=== PATIENT | male | born 1965 | race Two or more races ===

== ENCOUNTER 2018-04-15 10:20 | Outpatient (CLI) | payer OTHER | END 2018-04-15 10:21 | disposition home or self-care (01) | LOC: SC 10:20 | PROVIDERS: ATTEND Internal Medicine Pulmonary Disease | DX: G47.33 Obstructive sleep apnea (adult) (pediatric) (principal); F17.210 Nicotine dependence, cigarettes, uncomplicated; E66.9 Obesity, unspecified; Z68.31 Body mass index [BMI] 31.0-31.9, adult | CPT/HCPCS: 99203; 99212 ==

== ENCOUNTER 2020-04-05 05:56 | Day surgery (SDC) | payer OTHER ==
[2020-04-05] MEDS ORDERED: ceFAZolin 2 GM/50 ML 0 GM/0 ML BAG IV ONE (06:20)
[2020-04-05 06:28] VITALS: BP 140/82
[2020-04-05] MEDS ORDERED: LACTATED RINGERS 1,000 ML IV ONE (06:50)
[2020-04-05] MEDS ORDERED: BUPIVACAINE 0.25% PF 30 ML VIAL ONE (07:01)
[2020-04-05] MEDS ORDERED: PROPOFOL 200 MG/20 ML VIAL IVP ONE (07:09)
--- NOTE | 2020-04-05 07:09 | ANESTHESIA ---
Pre-Anesthesia VS, & Labs - Diagnosis R CTS - Procedure R CTR Vital Signs: Temp Pulse Resp BP Pulse Ox 36.4 C L 65 18 140/82 H 98 04/05/20 06:25 04/05/20 06:25 04/05/20 06:25 04/05/20 06:25 04/05/20 06:25 Height: 5 ft 6 in Weight (kg): 87.09 kg Body Mass Index: 30.9 BMI Classification: Obese - NPO >8 hours - Lab Results Lab results reviewed: Yes Home Medications and Allergies Home Medications: Ambulatory Orders Ergocalciferol [Vitamin D2] 50,000 unit PO Q7D 04/01/20 Ergocalciferol [Vitamin D2] 50,000 unit PO Q7D 04/01/20 Allergies/Adverse Reactions: Allergies Allergy/AdvReac Type Severity Reaction Status Date / Time No Known Drug Allergies Allergy Verified 04/01/20 08:13 Anes History & Medical History - Anesthetic History Anesthesia Complications: reports: No previous complications Family history of Anesthesia Complications: Denies Family history of Malignant Hyperthermia: Denies - Medical History Cardiovascular: reports: None Pulmonary: reports: Sleep apnea Gastrointestinal: reports: GERD Urinary: reports: None Neuro: reports: Other ([place]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, 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) Musculoskeletal: reports: Other Endocrine/Autoimmune: reports: Other Skin: reports: None - Surgical History General: Colonoscopy Exam General: Alert, Oriented x3, Cooperative Dental: WNL Mouth Openin Fingerbreadth Neck Mobility: Normal Mallampati classification: II Thyromental Distance: greater than 6 cm Respiratory: Lungs clear, Normal breath sounds, No respiratory distress Cardiovascular: Regular rate Mental/Cognitive Status: Alert/Oriented X3, Normal for patient Cognitive Status: Within normal limits Plan Anesthesia Type: General, MAC Consent for Procedure(s) Verified and Reviewed: Yes Code Status: Attempt Resuscitation ASA classification: 2-Mild systemic disease Is this case an emergency?: No
[2020-04-05] MEDS ORDERED: METOCLOPRAMIDE 10 MG/2 ML VIAL IVP PRN (07:10)
[2020-04-05] MEDS ORDERED: ePHEDrine 50 MG/ML VIAL IVP PRN (07:10)
[2020-04-05] MEDS ORDERED: ATROPINE ABBOJECT 1 MG/10 ML SYRINGE IVP PRN (07:10)
[2020-04-05] MEDS ORDERED: MORPHINE 2 MG/ML CARPUJECT IVP PRN (07:10)
[2020-04-05] MEDS ORDERED: HYDROmorphone 0.5 MG/0.5 ML SYRINGE IVP PRN (07:10)
[2020-04-05] MEDS ORDERED: NALOXONE 0.4 MG/ML VIAL IVP PRN (07:10)
[2020-04-05] MEDS ORDERED: fentaNYL 100 MCG/2 ML VIAL IVP PRN (07:10)
[2020-04-05] MEDS ORDERED: ONDANSETRON 4 MG/2 ML VIAL IVP PRN (07:10)
[2020-04-05] MEDS ORDERED: LACTATED RINGERS 1,000 ML IV SCH (08:00)
[2020-04-05] MEDS ORDERED: ROCURONIUM 50 MG/5 ML VIAL ONE (12:31)
[2020-04-05] MEDS ORDERED: LIDOCAINE-MPF 2% 5 ML VIAL ONE (12:31)
[2020-04-05] MEDS ORDERED: DEXAMETHASONE 4 MG/ML VIAL ONE (12:44)
[2020-04-05] MEDS ORDERED: KETOROLAC 30 MG/ML VIAL ONE (12:44)
[2020-04-05] MEDS ORDERED: ONDANSETRON 4 MG/2 ML VIAL ONE (12:44)
[2020-04-05] MEDS ORDERED: SUGAMMADEX 200 MG/2 ML VIAL IVP ONE (13:27)
== END 2020-04-05 05:57 | disposition home or self-care (01) ==
LOC: SDS 05:56
PROVIDERS: ATTEND Orthopaedic Surgery
DX: Z53.9 Procedure and treatment not carried out, unspecified reason (principal)

== ENCOUNTER 2020-04-15 06:05 | Day surgery (SDC) | payer OTHER ==
[2020-04-15] MEDS ORDERED: LACTATED RINGERS 1,000 ML IV ONE ×2 (06:18→08:18)
[2020-04-15] MEDS ORDERED: ceFAZolin 2 GM/50 ML 2 GM/50 ML BAG IV ONE (06:42)
[2020-04-15] MEDS ORDERED: PROPOFOL 200 MG/20 ML VIAL IVP ONE ×2 (07:16→07:56)
--- NOTE | 2020-04-15 07:16 | ANESTHESIA ---
Pre-Anesthesia VS, & Labs - Diagnosis Carpal tunnel syndrome - Procedure carpal tunnel release Vital Signs: Temp Pulse Resp BP Pulse Ox 36.3 C L 70 16 132/77 H 99 04/15/20 06:34 04/15/20 06:34 04/15/20 06:34 04/15/20 06:34 04/15/20 06:34 Height: 5 ft 6 in Weight (kg): 83.9 kg Body Mass Index: 29.8 BMI Classification: Overweight - NPO >8 hours - Lab Results Current Lab Results: Laboratory Tests 04/15/20 06:52: POC Whole Bld Glucose 217 H Home Medications and Allergies Ergocalciferol [Vitamin D2] 50,000 unit PO Q7D 04/01/20 Allergies/Adverse Reactions: Allergies Allergy/AdvReac Type Severity Reaction Status Date / Time No Known Drug Allergies Allergy Verified 04/14/20 13:49 Anes History & Medical History - Anesthetic History Anesthesia Complications: reports: No previous complications Family history of Anesthesia Complications: Denies Family history of Malignant Hyperthermia: Denies - Medical History Cardiovascular: reports: None Pulmonary: reports: Sleep apnea, CPAP use Gastrointestinal: reports: GERD Urinary: reports: None Neuro: reports: Other ([place]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, 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) Musculoskeletal: reports: Other Endocrine/Autoimmune: reports: Other Skin: reports: None - Surgical History General: Colonoscopy Exam General: Alert, Oriented x3, Cooperative, No acute distress Dental: WNL Mouth Openin Fingerbreadth Neck Mobility: Normal Mallampati classification: II Thyromental Distance: 4-6 cm Respiratory: Lungs clear, Normal breath sounds, No respiratory distress, No accessory muscle use Cardiovascular: Regular rate, Normal S1, Normal S2, No murmurs Mental/Cognitive Status: Alert/Oriented X3, Normal for patient Cognitive Status: Within normal limits Plan Anesthesia Type: MAC Consent for Procedure(s) Verified and Reviewed: Yes Code Status: Attempt Resuscitation ASA classification: 1-Healthy patient Is this case an emergency?: No
[2020-04-15] MEDS ORDERED: fentaNYL 100 MCG/2 ML VIAL ONE (07:18)
[2020-04-15] MEDS ORDERED: NALOXONE 0.4 MG/ML VIAL IVP PRN (07:26)
[2020-04-15] MEDS ORDERED: MORPHINE 2 MG/ML CARPUJECT IVP PRN (07:26)
[2020-04-15] MEDS ORDERED: KETOROLAC 15 MG/ML VIAL IVP ONE (07:26)
[2020-04-15] MEDS ORDERED: HYDROmorphone 0.5 MG/0.5 ML SYRINGE IVP PRN (07:26)
[2020-04-15] MEDS ORDERED: ATROPINE ABBOJECT 1 MG/10 ML SYRINGE IVP PRN (07:26)
[2020-04-15] MEDS ORDERED: ONDANSETRON 4 MG/2 ML VIAL IVP PRN ×2 (07:26→08:15)
[2020-04-15] MEDS ORDERED: ePHEDrine 50 MG/ML VIAL IVP PRN (07:26)
[2020-04-15] MEDS ORDERED: fentaNYL 100 MCG/2 ML VIAL IVP PRN (07:26)
[2020-04-15] MEDS ORDERED: METOCLOPRAMIDE 10 MG/2 ML VIAL IVP PRN (07:26)
[2020-04-15] MEDS ORDERED: LIDOCAINE 1% 50 ML MDV ONE (07:30)
[2020-04-15] MEDS ORDERED: BUPIVACAINE 0.25% PF 30 ML VIAL ONE (07:30)
[2020-04-15] MEDS ORDERED: LIDOCAINE 2%-EPI 1:100000 20 ML MDV SUBQ ONE ×2 (07:48)
[2020-04-15] MEDS ORDERED: LIDOCAINE 2%-EPI 1:100000 20 ML MDV ONE (07:49)
[2020-04-15] MEDS ORDERED: BUPIVACAINE 0.25% PF 30 ML VIAL SUBQ ONE (07:56)
[2020-04-15] MEDS ORDERED: LACTATED RINGERS 1,000 ML IV SCH (08:00)
[2020-04-15] MEDS ORDERED: oxyCODONE 5 MG TABLET PO PRN (08:15)
--- NOTE | 2020-04-15 08:19 | OPERATIVE REPORT ---
Operative Report - Other Other Information/Narrative: Date of Surgery: 15 April Pre-Op Diagnosis: Right Carpal tunnel syndrome Procedure: Right Open carpal tunnel release Postop Diagnosis: Right Carpal tunnel syndrome Primary Surgeon: Garrett Cooley Secondary Surgeon: Vitor Tucker Complications: None Tourniquet Time: 7 Minutes EBL: 5 cc Indication For Surgery: Symptoms, exam, and diagnostic studies consistent with carpal tunnel syndrome. Symptoms have not resolved with conservative treatment. The risks, benefits, and alternatives were discussed. Risks include pain, bleeding, infection, damage to nearby structures, numbness, pillar pain, lack of symptom relief, need for further surgery, DVT, PE, stroke, and . Written consent was obtained. The patient was met in the preoperative holding on the day of the procedure. Operative extremity was signed. Consent was verified. They desire to proceed. They were brought to the operating room and placed in the supine position. A well-padded forearm tourniquet was applied. They were prepped and draped in the standard fashion. A surgical timeout was held will be confirmed the patient procedure, identity, allergies, antibiotics, images and laterality. All were in agreement we proceeded. An Esmarch was used to exsanguinate the limb and the tourniquet was elevated to 250 mmHg. A 3cm longitudinal incision was made in line with the ulnar border of the ring finger starting at Mendoza's Cardinal line distally. This was just radial to the hook of the hamate. Bipolar electrocautery was used at the skin edge. Sharp dissection was brought down through the palmar fascia. Retractors were placed. The transverse carpal ligament was identified and a knife was used to separate it. The contents of the carpal tunnel were seen. Knife dissection was used to release the ligament as far proximal as could be visualized. Long handled Metzenbaum scissors were then used to create a pocket just superficial to the transverse carpal ligament and a retractor was placed. I then used a long handled Metzenbaum with the tips pointed ulnarly to complete the release 2 cm into the antebrachial fascia. Retractors were then moved distally and I confirmed complete release in the appearance of fat in the palm. A freer elevator was used to confirm complete release both proximally and distally. The wound was packed with a moist gauze and the tourniquet was deflated. After holding for 3 minutes the gauze was removed and bleeding was coming from the skin edge. Bleeding was controlled with bipolar electrocautery. The wound was closed with 3-0 nylon in a horizontal mattress configuration. 10 cc of local anesthetic was placed. A sterile bulky dressing was applied. He was awakened and transferred to the recovery room.
[2020-04-15 08:46] VITALS: BP 111/76
--- NOTE | 2020-04-15 13:46 | ANESTHESIA POST OP EVALUATION ---
Anesthesia Post Eval - Post Anesthesia Eval Vitals: Last Vital Signs Temp 36.4 C L 04/15/20 08:46 Pulse 74 04/15/20 08:46 Resp 21 04/15/20 08:46 BP 111/76 04/15/20 08:46 Pulse Ox 96 04/15/20 08:46 CV Function Including HR & BP: positive: Stable Pain Control: positive: Satisfactory Nausea & Vomiting: positive: Negative Mental Status: positive: Patient Participates Respiratory Status: Airway Patent Hydration Status: Satisfactory Anesthesia Complications: positive: None
== END 2020-04-15 06:06 | disposition home or self-care (01) ==
LOC: SDS 06:05
PROVIDERS: ATTEND Orthopaedic Surgery
DX: G56.03 Carpal tunnel syndrome, bilateral upper limbs (principal); G47.30 Sleep apnea, unspecified; G51.0 Bell's palsy; E11.9 Type 2 diabetes mellitus without complications; Z79.84 Long term (current) use of oral hypoglycemic drugs; K21.9 Gastro-esophageal reflux disease without esophagitis
CPT/HCPCS: 64721; J0690; J7120